=== PATIENT | female | born 1990 | race Caucasian/White ===

== ENCOUNTER 2018-08-19 08:26 | Emergency (ER) | payer BC ==
[2018-08-19] MEDS: HYDROCODONE/APAP (10/325) TAB PO (09:21)
[2018-08-19] MEDS: KETOROLAC 60 MG INJ IM (10:16)
== END 2018-08-19 12:47 | disposition home or self-care (01) ==
LOC: FTE 08:26
DX: M54.9 Dorsalgia, unspecified (principal)
CPT/HCPCS: 70450; 72131; 81025; 96372; 99285-25